=== PATIENT | female | born 1985 | race Caucasian/White ===

== ENCOUNTER 2024-03-24 21:27 | Inpatient (IN) | payer MEDICAID ==
[~2024-03-24] VITALS: Ht 165.1 cm; Wt 75.7 kg
[2024-03-24] MEDS: SODIUM CHLORIDE 0.9% 1,000 ML IV ONE (22:48)
[2024-03-24] MEDS: ONDANSETRON HCL 4MG/2ML INJ IV STA (22:48)
[2024-03-24 22:51] LABS: BASOPHILS % 0.4 % (0.0-2.0); EOSINOPHILS % 0.4 % (0.0-5.0); HEMATOCRIT. 36.6 % (36.0-48.0); HEMOGLOBIN. 12.3 g/dL (12.0-16.0); LYMPHOCYTES % 17.7 % (20.0-50.0); MEAN CORPUSCULAR HGB CONC 33.7 g/dL (31.0-37.0); MEAN CORPUSCULAR VOLUME 88.9 fL (81.0-99.0); MEAN PLATELET VOLUME 7.7 fl (7.4-10.4); MONOCYTES % 7.8 % (2.0-8.0); NEUTROPHILS % 73.7 % (40.0-76.0); PLATELET 289 x1000/uL (130-400); RED BLOOD CELL COUNT 4.11 mill/uL (4.2-5.4); RED CELL DISTRIBUTION WIDTH 13.1 % (11.6-14.6)
[2024-03-24 22:56] LABS: CHLORIDE 109 mEq/L (98-107); POTASSIUM 3.3 mEq/L (3.5-5.1); SODIUM 141 mEq/L (136-145)
[2024-03-24 22:57] LABS: CALCIUM 8.9 mg/dL (8.7-10.4); CARBON DIOXIDE 23 mEq/L (21-32)
[2024-03-24 22:58] LABS: HCG SCREEN NEGATIVE
[2024-03-24 23:02] LABS: CREATININE 1.1 mg/dL (0.6-1.0); GLUCOSE 106 mg/dL (70-105); UREA NITROGEN BLOOD 7 mg/dL (9-23)
[2024-03-24 23:04] LABS: ACETAMINOPHEN 15 ug/mL (10-30); ALANINE AMINOTRANSFERASE 14 IU/L (10-49); ALBUMIN 4.1 g/dL (3.2-4.8); ASPARTATE AMINOTRANSFERASE 19 IU/L (<34); BILIRUBIN TOTAL 0.5 mg/dL (0.1-1.0)
[2024-03-24 23:05] LABS: PROTEIN TOTAL 6.6 g/dL (6.0-8.3)
[2024-03-24 23:12] LABS: ETHANOL BLOOD < 10 mg/dL (<10)
[2024-03-25 00:34] LABS: IRON 314 ug/dL (50-170)
[2024-03-25 00:37] LABS: TOTAL IRON BINDING CAPACITY 317 ug/dl (250-425)
[2024-03-25 01:44] LABS: PROTHROMBIN TIME 10.9 sec (9.6-11.0)
[2024-03-25 02:08] LABS: CHLORIDE 110 mEq/L (98-107); POTASSIUM 3.7 mEq/L (3.5-5.1); SODIUM 141 mEq/L (136-145)
[2024-03-25 02:09] LABS: CARBON DIOXIDE 22 mEq/L (21-32)
[2024-03-25 02:10] LABS: CALCIUM 9.1 mg/dL (8.7-10.4)
[2024-03-25 02:14] LABS: CREATININE 0.9 mg/dL (0.6-1.0); GLUCOSE 109 mg/dL (70-105); IRON 310 ug/dL (50-170); UREA NITROGEN BLOOD 7 mg/dL (9-23)
[2024-03-25 02:17] LABS: ACETAMINOPHEN 16 ug/mL (10-30); ALANINE AMINOTRANSFERASE 28 IU/L (10-49); ALBUMIN 4.2 g/dL (3.2-4.8); ASPARTATE AMINOTRANSFERASE 36 IU/L (<34); BILIRUBIN DIRECT 0.2 mg/dL (<=3.0); BILIRUBIN TOTAL 0.6 mg/dL (0.1-1.0); TOTAL IRON BINDING CAPACITY 317 ug/dl (250-425)
[2024-03-25 02:18] LABS: PROTEIN TOTAL 6.7 g/dL (6.0-8.3)
[2024-03-25] MEDS: SODIUM CHLORIDE 0.9% 1,000 ML IV SCH (08:17)
[2024-03-25] MEDS: ONDANSETRON HCL 4MG/2ML INJ IV PRN (10:52)
[2024-03-25 20:30] LABS: CHLORIDE 111 mEq/L (98-107); POTASSIUM 3.5 mEq/L (3.5-5.1); SODIUM 141 mEq/L (136-145)
[2024-03-25 20:31] LABS: CALCIUM 8.8 mg/dL (8.7-10.4); CARBON DIOXIDE 22 mEq/L (21-32)
[2024-03-25 20:36] LABS: CREATININE 0.8 mg/dL (0.6-1.0); GLUCOSE 77 mg/dL (70-105); IRON 50 ug/dL (50-170); UREA NITROGEN BLOOD 6 mg/dL (9-23)
[2024-03-25 20:38] LABS: ALANINE AMINOTRANSFERASE 20 IU/L (10-49); ALBUMIN 3.7 g/dL (3.2-4.8); ASPARTATE AMINOTRANSFERASE 19 IU/L (<34)
[2024-03-25 20:39] LABS: BILIRUBIN TOTAL 0.6 mg/dL (0.1-1.0)
[2024-03-25 22:35] VITALS: BP 94/60; PULSE 60; RESP 18; TEMP 36.61404; O2SAT 99
[2024-03-26 06:47] LABS: CHLORIDE 110 mEq/L (98-107); POTASSIUM 3.5 mEq/L (3.5-5.1); SODIUM 140 mEq/L (136-145)
[2024-03-26 06:48] LABS: CALCIUM 8.6 mg/dL (8.7-10.4); CARBON DIOXIDE 22 mEq/L (21-32)
[2024-03-26 06:53] LABS: CREATININE 0.7 mg/dL (0.6-1.0); GLUCOSE 70 mg/dL (70-105); IRON 58 ug/dL (50-170)
[2024-03-26 06:55] LABS: ALANINE AMINOTRANSFERASE 23 IU/L (10-49); ALBUMIN 3.6 g/dL (3.2-4.8); ASPARTATE AMINOTRANSFERASE 20 IU/L (<34); BILIRUBIN DIRECT 0.2 mg/dL (<=3.0); PHOSPHORUS 2.7 mg/dL (2.5-4.9); PROTEIN TOTAL 5.7 g/dL (6.0-8.3)
[2024-03-26 06:56] LABS: BILIRUBIN TOTAL 0.6 mg/dL (0.1-1.0); UREA NITROGEN BLOOD < 5 mg/dL (9-23)
[2024-03-26 07:52] LABS: BASOPHILS % 0.4 % (0.0-2.0); EOSINOPHILS % 3.4 % (0.0-5.0); HEMATOCRIT. 35.8 % (36.0-48.0); LYMPHOCYTES % 27.8 % (20.0-50.0); MEAN CORPUSCULAR HGB CONC 33.6 g/dL (31.0-37.0); MEAN CORPUSCULAR VOLUME 89.4 fL (81.0-99.0); MEAN PLATELET VOLUME 8.5 fl (7.4-10.4); MONOCYTES % 6.7 % (2.0-8.0); NEUTROPHILS % 61.7 % (40.0-76.0); PLATELET 261 x1000/uL (130-400); RED BLOOD CELL COUNT 4.01 mill/uL (4.2-5.4); RED CELL DISTRIBUTION WIDTH 13.2 % (11.6-14.6); WHITE BLOOD COUNT 7.6 x1000/uL (4.5-11.0)
[2024-03-26 20:00] VITALS: BP 95/64; PULSE 71; RESP 18; TEMP 36.78072; O2SAT 97
[2024-03-26 23:00] VITALS: BP 107/57; PULSE 59; RESP 18; TEMP 36.7516
[2024-03-27] VITALS: BP 107/57; PULSE 59; RESP 18; TEMP 36.72516; O2SAT 95
[2024-03-27 04:00] VITALS: BP 103/53; PULSE 62; RESP 19; TEMP 36.33624; O2SAT 99
[2024-03-27 08:00] VITALS: BP 106/58; PULSE 64; RESP 18; TEMP 36.61404; O2SAT 97
[2024-03-27 12:00] VITALS: BP 104/55; PULSE 68; RESP 19; TEMP 37.11408; O2SAT 98
[2024-03-27 14:31] LABS: *AMPHETAMINES SCREEN URINE NEGATIVE (NEGATIVE); *BARBITURATES SCREEN URINE NEGATIVE (NEGATIVE); *BENZODIAZEPINES SCREEN URINE NEGATIVE (NEGATIVE); *COCAINE SCREEN URINE NEGATIVE (NEGATIVE); METHADONE URINE SCREEN NEGATIVE (NEGATIVE)
[2024-03-27 14:32] LABS: CANNABINOID URINE SCREEN NEGATIVE (NEGATIVE); ECSTASY MDMA SCREEN URINE NEGATIVE (NEGATIVE); OPIATES URINE SCREEN NEGATIVE (NEGATIVE); PHENCYCLIDINE URINE SCREEN NEGATIVE (NEGATIVE)
[2024-03-27 16:00] VITALS: BP 90/50; PULSE 74; RESP 18; TEMP 36.89184; O2SAT 97
[2024-03-27 20:00] VITALS: BP 96/5; PULSE 76; RESP 18; TEMP 36.28068; O2SAT 96
[2024-03-27] MEDS ORDERED: ONDANSETRON 4MG ODT PO PRN (21:00)
[2024-03-28 06:37] VITALS: BP 96/59; PULSE 68; RESP 18; TEMP 36.05844; O2SAT 98
[2024-03-28 08:00] VITALS: BP 106/60; PULSE 63; RESP 17; TEMP 36.114; O2SAT 100
[2024-03-28] MEDS: SERTRALINE HCL 25MG TABLET PO SCH (08:42)
[2024-03-28 12:00] VITALS: BP 92/53; PULSE 67; RESP 18; TEMP 36.61404; O2SAT 100
[2024-03-28 13:08] VITALS: BP 92/53; PULSE 67; TEMP 98; O2SAT 98
== END 2024-03-28 14:20 | DRG 817 ==
LOC: ER 21:27 → 5WST 03-25 02:00 → 6EST 03-26 22:36
PROVIDERS: ADMIT Internal Medicine; ATTEND Internal Medicine
DX: T39.1X2A Poisoning by 4-Aminophenol derivatives, intentional self-harm, initial encounter (principal); F32.9 Major depressive disorder, single episode, unspecified; Z20.822 Contact with and (suspected) exposure to COVID-19; T45.4X2A Poisoning by iron and its compounds, intentional self-harm, initial encounter; Y92.89 Other specified places as the place of occurrence of the external cause
CPT/HCPCS: 36415; 74018; 80048; 80053; 80076; 80305; 80307; 80320; 80329; 83540; 83550; 83735; 84100; 84703; 85025; 87426; 93005; 99285; J2405; J7030; G0480